=== PATIENT | male | born 1965 | race African-American/Black ===

== ENCOUNTER 2022-06-02 08:54 | Emergency (ER) | payer MEDICAID ==
[~2022-06-02] VITALS: Ht 188 cm; Wt 100.0 kg
[2022-06-02] MEDS ORDERED: HYDROCODONE/ACETAMINOPHEN 5/325MG TABLET PO ONE (10:45)
[2022-06-02] MEDS ORDERED: MORPHINE SULFATE 4 MG/ML CPJ (NOT FOR IM USE) IV STA (12:46)
[2022-06-02] MEDS ORDERED: ONDANSETRON HCL 4MG/2ML INJ IV STA (12:46)
[2022-06-02 15:08] LABS: BASOPHILS % 0.4 % (0.0-2.0); EOSINOPHILS % 1.5 % (0.0-5.0); HEMATOCRIT. 43.7 % (42.0-52.0); HEMOGLOBIN. 14.5 g/dL (14.0-18.0); LYMPHOCYTES % 25.3 % (20.0-50.0); MEAN CORPUSCULAR HEMOGLOBIN 27.1 pg (28.0-32.0); MEAN CORPUSCULAR VOLUME 81.9 fL (80.0-94.0); MEAN PLATELET VOLUME 7.9 fl (7.4-10.4); MONOCYTES % 11.7 % (2.0-8.0); NEUTROPHILS % 61.1 % (40.0-76.0); PLATELET 188 x1000/uL (130-400); RED BLOOD CELL COUNT 5.34 mill/uL (4.7-6.1); RED CELL DISTRIBUTION WIDTH 14.9 % (11.6-14.6)
[2022-06-02 15:16] LABS: CHLORIDE 102 mEq/L (98-107)
[2022-06-02] MEDS ORDERED: LIDO700A15 TP (18:15)
[2022-06-02] MEDS ORDERED: NAPR-681 MT (18:15)
[2022-06-02] MEDS ORDERED: LIDOCAINE 5% PATCH TOP SCH (18:15)
[2022-06-02] MEDS ORDERED: KETOROLAC 30MG/ML VIAL IV ONE (18:15)
[2022-06-02 19:00] VITALS: BP 158/70
== END 2022-06-02 19:09 | disposition home or self-care (01) ==
LOC: ER 09:10
DX: S22.42XA Multiple fractures of ribs, left side, initial encounter for closed fracture (principal); R07.89 Other chest pain; W11.XXXA Fall on and from ladder, initial encounter; Y93.89 Activity, other specified; Y92.9 Unspecified place or not applicable; Z88.2 Allergy status to sulfonamides; Z98.890 Other specified postprocedural states
CPT/HCPCS: 36415; 71101; 71250; 74176; 74177; 80053; 85025; 96374; 96375; 99285; J1885; J2270; J2405

== ENCOUNTER 2025-06-17 10:41 | Emergency (ER) | payer MEDICAID, OTHER ==
[~2025-06-17] VITALS: Ht 188 cm; Wt 95.8 kg
[~2025-06-17 10:41] MED LIST: LIDO-53 TP; NAPR-681 MT
[2025-06-17 10:53] VITALS: O2SAT 98
[2025-06-17] MEDS ORDERED: IBUP-2030 MT (11:56)
[2025-06-17] MEDS ORDERED: VALA100044 MT (11:56)
[2025-06-17] MEDS: HYDROCODONE/ACETAMINOPHEN 5/325MG TABLET PO ONE (12:32)
[2025-06-17] MEDS: KETOROLAC 30MG/ML VIAL IM ONE (12:32)
[2025-06-17 13:23] VITALS: BP 155/80; PULSE 56; RESP 17; TEMP 37; O2SAT 100
[2025-06-18] MEDS ORDERED: P50 MT (22:27)
[2025-06-18] MEDS ORDERED: HYDR-4001 MT (22:27)
== END 2025-06-17 13:29 | disposition home or self-care (01) ==
LOC: ER 10:41
DX: B02.9 Zoster without complications (principal); M25.562 Pain in left knee; Z98.890 Other specified postprocedural states; Z79.899 Other long term (current) drug therapy; Z79.624 Long term (current) use of inhibitors of nucleotide synthesis; Z88.2 Allergy status to sulfonamides
CPT/HCPCS: 99283; 73562; 96372; J1885

== ENCOUNTER 2025-06-18 19:57 | Emergency (ER) | payer SELFPAY ==
[~2025-06-18] VITALS: Ht 182.9 cm; Wt 96.3 kg
[~2025-06-18 19:57] MED LIST changes: +IBUP-2030 MT; +VALA100044 MT
[2025-06-18 20:33] VITALS: O2SAT 97
[2025-06-18] MEDS ORDERED: HYDR-4001 MT (22:27)
[2025-06-18] MEDS ORDERED: P50 MT (22:27)
[2025-06-18] MEDS: PREDNISONE 20MG TABLET PO ONE (23:08)
[2025-06-18 23:10] VITALS: BP 155/76; PULSE 55; RESP 19; TEMP 36.9; O2SAT 97
[2025-06-18] MEDS: HYDROCODONE/ACETAMINOPHEN 5/325MG TABLET PO ONE (23:10)
== END 2025-06-18 23:10 | disposition home or self-care (01) ==
LOC: ER 19:57
DX: B02.9 Zoster without complications (principal); Z88.2 Allergy status to sulfonamides
CPT/HCPCS: 99283; J7512